=== PATIENT | female | born 1940 | race Caucasian/White ===

== ENCOUNTER 2019-06-08 09:01 | Observation (INO) ==
[2019-06-08] MEDS ORDERED: *HR* Midazolam HCl 2 MG/2 ML VIAL IVP ONE ×2 (09:17→10:48)
[2019-06-08] MEDS ORDERED: *HR* FentaNYL (PF) 100 MCG/2 ML VIAL IVP ONE ×2 (09:17→10:48)
[2019-06-08] MEDS ORDERED: levoFLOXacin 500 MG/100 ML 500 MG/100 ML BAG IVPB ONE (09:39)
[2019-06-08] MEDS ORDERED: Ringers Solution, Lactated 1,000 ML IVC SCH (09:45)
[2019-06-08 09:52] LABS: Basophils # 0.1 K/mcL (0.0-0.2); Basophils % 0.7 %; Eosinophils # 0.1 K/mcL (0.0-0.6); Eosinophils % 1.2 %; Hematocrit 44.1 % (35.3-44.9); Immature Granulocytes % 0.4 % (0-4); Lymphocytes % 29.5 %; Mean Corpuscular HGB Conc 31.7 g/dL (31.6-35.5); Mean Corpuscular Hemoglobin 29.4 pg (28.0-33.3); Mean Corpuscular Volume 92.5 fL (83.0-100.0); Mean Platelet Volume 10.3 fL (9.4-12.4); Monocytes # 0.4 K/mcL (0.0-1.3); Monocytes % 5.2 %; Neutrophils # 4.3 K/mcL (1.6-8.9); Platelet Count 259 K/mcL (140-400); Red Blood Count 4.77 M/mcL (3.82-4.97); Red Cell Distribution Width 13.8 % (11.5-14.5); White Blood Count 6.9 K/mcL (4.3-11.1)
[2019-06-08] MEDS ORDERED: *HR* HYDROmorphone (PF) 1 MG/ML SYRINGE IVP PRN (09:54)
[2019-06-08] MEDS ORDERED: Ondansetron 4 MG/2 ML VIAL IVP PRN (09:54)
[2019-06-08] MEDS ORDERED: *HR* Promethazine 25 MG/ML VIAL IVP PRN (09:54)
[2019-06-08 10:00] LABS: INR 0.9; Prothrombin Time 10.3 Seconds (9.4-12.1)
[2019-06-08] MEDS ORDERED: Heparin 1,000 UNITS/500 mL 500 ML ONE (10:38)
[2019-06-08] MEDS ORDERED: Lidocaine/EPI 1:100k 1% 50 ML VIAL ONE (10:38)
[2019-06-08] MEDS ORDERED: Isovue-300 150 ML INFUS..BTL ONE (12:09)
[2019-06-08] MEDS ORDERED: *HR* Succinylcholine 200 MG/10 ML VIAL IVP ONE (12:15)
[2019-06-08] MEDS ORDERED: Lidocaine -MPF 2% 2 ML VIAL ONE (12:15)
[2019-06-08] MEDS ORDERED: Ondansetron 4 MG/2 ML VIAL ONE (12:15)
[2019-06-08] MEDS ORDERED: *HR* Propofol 200 MG/20 ML VIAL IVP ONE (12:15)
[2019-06-08] MEDS ORDERED: Dexamethasone 4 MG/ML VIAL ONE (12:15)
[2019-06-08] MEDS ORDERED: *HR* FentaNYL (PF) 100 MCG/2 ML VIAL ONE ×2 (12:15→12:50)
[2019-06-08] MEDS ORDERED: *HR* PHENYLEPHRINE 1,000 MCG/10 ML SYRINGE IVP ONE (13:16)
[2019-06-08] MEDS ORDERED: *HR* Labetalol 20 MG/4 ML SYRINGE IVP ONE (13:46)
[2019-06-08] MEDS ORDERED: Naloxone 0.4 MG/ML INJ ONE (15:07)
[2019-06-08] MEDS ORDERED: hydrALAZINE 10 MG TABLET PO PRN (15:09)
[2019-06-08] MEDS ORDERED: Naloxone 0.4 MG/ML INJ IVP PRN (16:28)
[2019-06-08] MEDS ORDERED: *HR* HYDROcodone/Acet 5/325 mg TABLET PO PRN (16:28)
[2019-06-08] MEDS ORDERED: Fluticasone Propionate Nasal 50 MCG/SPRAY BOTTLE NS PRN (16:28)
[2019-06-08] MEDS ORDERED: flumazeniL 0.5 MG/5 ML VIAL IVP PRN (16:28)
[2019-06-08] MEDS ORDERED: *HR* Belladonna Alkaloids/Opium 30 MG RECTAL SUPPOSITORY RC PRN (16:28)
[2019-06-08] MEDS ORDERED: clonazePAM 0.5 MG TABLET PO PRN (16:28)
[2019-06-08] MEDS: 0.9 % Sodium Chloride 1,000 ML IVC SCH (16:59)
[2019-06-08] MEDS: Acetaminophen IV 1,000 MG/100 ML INFUS..BTL IVPB SCH ×2 (17:08→23:45)
[2019-06-09 05:05] LABS: Basophils % 0.1 %; Hematocrit 40.1 % (35.3-44.9); Hemoglobin 12.8 g/dL (11.5-15.4); Immature Granulocytes % 0.4 % (0-4); Mean Corpuscular HGB Conc 31.9 g/dL (31.6-35.5); Mean Corpuscular Hemoglobin 29.8 pg (28.0-33.3); Mean Corpuscular Volume 93.3 fL (83.0-100.0); Mean Platelet Volume 10.3 fL (9.4-12.4); Monocytes # 0.7 K/mcL (0.0-1.3); Monocytes % 4.9 %; Neutrophils # 12.6 K/mcL (1.6-8.9); Platelet Count 283 K/mcL (140-400); Red Cell Distribution Width 14.4 % (11.5-14.5); Segmented Neutrophils % 87.6 %
[2019-06-09 05:07] LABS: White Blood Count 14.4 K/mcL (4.3-11.1)
[2019-06-09 05:21] LABS: Calcium 8.6 mg/dL (8.6-10.3); Potassium 4.6 mEq/L (3.5-5.1)
[2019-06-09] MEDS: Acetaminophen IV 1,000 MG/100 ML INFUS..BTL IVPB SCH ×2 (05:22→12:43)
[2019-06-09] MEDS: 0.9 % Sodium Chloride 1,000 ML IVC SCH (05:23)
[2019-06-09] MEDS: Ondansetron 4 MG/2 ML VIAL IVP PRN ×2 (09:12→16:48)
[2019-06-09] MEDS ORDERED: hydrALAZINE 10 MG TABLET PO PRN (15:23)
[2019-06-10 07:24] VITALS: BP 171/73
[2019-06-10 17:13] LABS: Calculi Mass 462 mg
== END 2019-06-10 10:35 | disposition home or self-care (01) ==
LOC: 3ANU 09:01 → SAMDAY 09:01 → 3ANU 15:02
PROVIDERS: ADMIT Urology; ATTEND Urology